=== PATIENT | female | born 1950 | race Caucasian/White ===

== ENCOUNTER → 2016-09-23 | Outpatient (CLI) | payer OTHER | LOC: FIMAGING 10:06 | PROVIDERS: ATTEND Specialist | DX: G56.13 Other lesions of median nerve, bilateral upper limbs (principal); M24.831 Other specific joint derangements of right wrist, not elsewhere classified; M77.8 Other enthesopathies, not elsewhere classified ==

== ENCOUNTER 2016-10-19 12:24 | Inpatient (IN) | payer OTHER ==
--- NOTE | 2016-10-19 12:57 | CPEKG ---
Heart Rate: 77 RR Interval: 779 P-R Interval: 156 QRSD Interval: 86 QT Interval: 380 QTC Interval: 431 P [place]: 53 QRS [place]: -10 T Wave [place]: 46 EKG Severity - ABNORMAL ECG - EKG Impression: SINUS RHYTHM EKG Impression: VENTRICULAR BIGEMINY EKG Impression: BORDERLINE T ABNORMALITIES, ANT-LAT LEADS Electronically Signed By: Kwame Quiroz 19-Oct-2016 13:02:35
[2016-10-19] MEDS ORDERED: NS 1,000 ML IV ONE (13:13)
[2016-10-19] MEDS ORDERED: ASPIRIN 81 MG CHEWABLE TAB PO ONE (13:13)
--- NOTE | 2016-10-19 13:18 | EDPHY ---
H & P Stated Complaint: Midsternal CP "fluttery feel" since yesterday Time Seen by Provider: 10/19/16 13:00 HPI/ROS: CHIEF COMPLAINT: Palpitations HISTORY OF PRESENT ILLNESS: The patient is a 66-year-old obese female with a history of high cholesterol and PVCs who comes to the emergency department complaining of palpitations. She has had PVCs for several years diagnosed by her primary Dr. Ena Johansen. Over last month they become more frequent since she started an exercise program. Over the last week she has began taking the herbal stimulants. Today she has had frequent palpitations and feelings of lightheadedness since she woke up at 6:30 a.m. this morning. No nausea. No diaphoresis. No chest pain or pressure. She does state that she feels that her symptoms improved when she takes a deep breath. It is not painful. Heart rate is around 60. REVIEW OF SYSTEMS: Constitutional: denies: chills, fever, recent illness, recent injury EENTM: denies: blurred vision, double vision, nose congestion Respiratory: denies: cough, shortness of breath Cardiac: See HPI Gastrointestinal/Abdominal: denies: abdominal pain, diarrhea, nausea, vomiting, blood streaked stools Genitourinary: denies: dysuria, frequency, hematuria, pain Musculoskeletal: denies: joint pain, muscle pain Skin: denies: lesions, rash, jaundice, bruising Neurological: denies: headache, numbness, paresthesia, tingling, dizziness, weakness Hematologic/Lymphatic: denies: blood clots, easy bleeding, easy bruising Immunologic/allergic: denies: HIV/AIDS, transplant EXAM: GENERAL: Well-appearing, well-nourished and in no acute distress. HEAD: Atraumatic, normocephalic. EYES: Pupils equal round and reactive to light, extraocular movements intact, sclera anicteric, conjunctiva are normal. ENT: TMs normal, nares patent, oropharynx clear without exudates. Moist mucous membranes. NECK: Normal range of motion, supple without lymphadenopathy or JVD. LUNGS: Breath sounds clear to auscultation bilaterally and equal. No wheezes rales or rhonchi. HEART: Frequent PVCs occasional bigeminy ABDOMEN: Soft, nontender, normoactive bowel sounds. No guarding, no rebound. No masses appreciated. BACK: No CVA tenderness, no spinal tenderness, step-offs or deformities EXTREMITIES: Normal range of motion, no pitting or edema. No clubbing or cyanosis. NEUROLOGICAL: Cranial nerves II through XII grossly intact. Normal speech, normal gait. 5/5 strength, normal movement in all extremities, normal sensation PSYCH: Normal mood, normal affect. SKIN: Warm, dry, normal turgor, no visible rashes or lesions. Source: Patient Exam Limitations: No limitations - Personal History Current Tetanus/Diphtheria Vaccine: Unsure Current Tetanus Diphtheria and Acellular Pertussis (TDAP): Unsure - Medical/Surgical History Hx Asthma: No Hx Chronic Respiratory Disease: No Hx Diabetes: No Hx Cardiac Disease: No Hx Renal Disease: No Hx Cirrhosis: No Hx Alcoholism: No Hx HIV/AIDS: No Hx Splenectomy or Spleen Trauma: No Other PMH: hemorrhoidectomy, lami/discectomy ; appy; foot surg w/pins; 2 knee arthroscopies; high chol; indigestion, reflux, - Family History Significant Family History: No pertinent family hx - Social History Smoking Status: Former smoker Alcohol Use: Sober Drug Use: None Constitutional: Initial Vital Signs Temperature (C) 36.6 C 10/19/16 12:30 Heart Rate 45 L 10/19/16 12:30 Respiratory Rate 16 10/19/16 12:30 Blood Pressure 155/80 H 10/19/16 12:30 O2 Sat (%) 98 10/19/16 12:30 O2 Delivery Mode Nasal Cannula O2 (L/minute) 2 Allergies/Adverse Reactions: No Known Allergies Allergy (Verified 10/19/16 16:54) Home Medications: Medication Instructions Recorded Acetaminophen [Tylenol 325mg (*)] 650 mg PO HS PRN 10/19/16 Herbals/Supplements -Info Only 1 tab PO DAILY 10/19/16 Multivitamins [Multivitamin (*)] 1 tab PO DAILY 10/19/16 Medical Decision Making - Diagnostics EKG Interpretation: An EKG obtained and was read and documented in trace view. Please see trace view for full reading and report. Sinus rhythm, PVCs, no acute ischemia Imaging Results: Imaging Impressions Chest X-Ray 10/19/16 13:13 Impression: No acute pulmonary disease. Chest/Thorax CTA 10/19/16 14:15 Impression: 1. No pulmonary emboli. 2. Pulmonary arterial hypertension. 3. Multiple hepatic cysts. I telephoned results to Dr. Kwame Quiroz at 1509 hours. ED Course/Re-evaluation: The patient has frequent PVCs and occasionally bigeminy. When she has the episodes of bigeminy this is when she becomes symptomatic with palpitations and lightheadedness. Her blood pressure and oxygenation of remained stable. I suspect that this is related to her new exercise regimen it and herbal stimulants. We discussed options. I will obtain cardiac workup and hold off on beta blockers at this time because of her heart rate in the 50s and 60s. I encouraged her to discontinue the herbal stimulants. 2:15 p.m. we discussed the patient's D-dimer. I will obtain a CT angiogram. She became somewhat anxious during this discussion it began having bigeminy. She states that her symptoms of palpitation were exactly reproduced. 3:20 p.m. we discussed the patient's CT report and she is relieved. She continues to have bigeminy off and on. I will give her a trial dose of metoprolol. Her troponin is negative after greater than 8 hours of symptoms which is reassuring. 4:15 p.m. I discussed the case with Dr. Lilly Falcon. The patient has not improved on IV metoprolol. She suggests oral metoprolol and admission for monitoring and echocardiogram in the morning. patient agrees with this plan. 4:20 p.m. I discussed the case with Dr. Angelica Lord who will admit to the medical service on telemetry. Differential Diagnosis: Partial list of the Differential diagnosis considered include but were not limited to; palpitations, acute coronary disease, PE and although unlikely based on the history and physical exam, I also considered , arrhythmia infection , CVA. - Data Points Laboratory Results: Laboratory Results 10/19/16 12:55 10/19/16 12:55 10/19/16 10/19/16 10/19/16 12:55 12:55 12:55 WBC 5.91 10^3/uL 10^3/uL (3.80-9.50) RBC 4.04 10^6/uL L 10^6/uL (4.18-5.33) Hgb 12.5 g/dL L g/dL (12.6-16.3) Hct 37.1 % L % (38.0-47.0) MCV 91.8 fL fL (81.5-99.8) MCH 30.9 pg pg (27.9-34.1) MCHC 33.7 g/dL g/dL (32.4-36.7) RDW 13.2 % % (11.5-15.2) Plt Count 299 10^3/uL 10^3/uL (150-400) MPV 9.2 fL fL (8.7-11.7) Neut % (Auto) 46.7 % % (39.3-74.2) Lymph % (Auto) 41.1 % % (15.0-45.0) Pierce % (Auto) 9.8 % % (4.5-13.0) Eos % (Auto) 1.7 % % (0.6-7.6) Baso % (Auto) 0.5 % % (0.3-1.7) Nucleat RBC Rel Count 0.0 % % (0.0-0.2) Absolute Neuts (auto) 2.76 10^3/uL 10^3/uL (1.70-6.50) Absolute Lymphs (auto) 2.43 10^3/uL 10^3/uL (1.00-3.00) Absolute Monos (auto) 0.58 10^3/uL 10^3/uL (0.30-0.80) Absolute Eos (auto) 0.10 10^3/uL 10^3/uL (0.03-0.40) Absolute Basos (auto) 0.03 10^3/uL 10^3/uL (0.02-0.10) Absolute Nucleated RBC 0.00 10^3/uL 10^3/uL (0-0.01) Immature Gran % 0.2 % % (0.0-1.1) Immature Gran # 0.01 10^3/uL 10^3/uL (0.00-0.10) D-Dimer 1.00 ug/mLFEU H ug/mLFEU (0.00-0.50) Sodium 138 mEq/L mEq/L (134-144) Potassium 4.3 mEq/L mEq/L (3.5-5.2) Chloride 104 mEq/L mEq/L (97-110) Carbon Dioxide 23 mEq/l mEq/l (22-31) Anion Gap 11 mEq/L mEq/L (8-16) BUN 22 mg/dL mg/dL (7-23) Creatinine 0.7 mg/dL mg/dL (0.6-1.0) Estimated GFR > 60 Glucose 87 mg/dL mg/dL (70-100) Calcium 10.3 mg/dL mg/dL (8.5-10.4) Troponin I < 0.012 ng/mL ng/mL (0.000-0.034) Medications Given: Discontinued Medications Aspirin (Aspirin) 324 mg PO EDNOW ONE Stop: 10/19/16 13:14 Last Admin: 10/19/16 13:25 Dose: 324 mg Sodium Chloride (Ns) 1,000 mls @ 0 mls/hr IV EDNOW ONE; Wide Open PRN Reason: Protocol Stop: 10/19/16 13:14 Last Admin: 10/19/16 13:24 Dose: 1,000 mls Metoprolol Tartrate (Lopressor Injection) 5 mg IVP EDNOW ONE Stop: 10/19/16 15:21 Last Admin: 10/19/16 15:37 Dose: 5 mg Metoprolol Tartrate (Lopressor) 25 mg PO EDNOW ONE Stop: 10/19/16 16:12 Last Admin: 10/19/16 16:17 Dose: 25 mg Departure - Departure Disposition: [facility] Inpatient Acute Clinical Impression: Chest pain Qualifiers: Chest pain type: unspecified Qualified Code(s): R07.9 - Chest pain, unspecified Condition: Fair
[2016-10-19 13:20] LABS: % IMMATURE GRANULYOCYTES 0.2 % (0.0-1.1); ABSOLUTE IMMATURE GRANULOCYTES 0.01 10^3/uL (0.00-0.10); ADD DIFF? NO; ADD MORPH? NO; ADD SCAN? NO; ATYPICAL LYMPHOCYTE FLAG 10 (0-99); FRAGMENT RBC FLAG 0 (0-99); HEMATOCRIT 37.1 % (38.0-47.0); HEMOGLOBIN 12.5 g/dL (12.6-16.3); LEFT SHIFT FLG 0 (0-99); LIPEMIA HEMOLYSIS FLAG 80 (0-99); MEAN CELL HEMOGLOBIN 30.9 pg (27.9-34.1); MEAN CELL HEMOGLOBIN CONCENTR. 33.7 g/dL (32.4-36.7); MEAN CELL VOLUME 91.8 fL (81.5-99.8); MEAN PLATELET VOLUME 9.2 fL (8.7-11.7); PLATELET CLUMPS FLAG 20 (0-99); PLATELET COUNT 299 10^3/uL (150-400); RED BLOOD CELL COUNT 4.04 10^6/uL (4.18-5.33); RED CELL DISTRIBUTION WIDTH 13.2 % (11.5-15.2)
[2016-10-19 13:24] LABS: ANION GAP 11 mEq/L (8-16); CALCIUM 10.3 mg/dL (8.5-10.4); CARBON DIOXIDE 23 mEq/l (22-31); CHLORIDE 104 mEq/L (97-110); CREATININE 0.7 mg/dL (0.6-1.0); GLOMERULAR FILTRATION RATE > 60; GLUCOSE 87 mg/dL (70-100); POTASSIUM 4.3 mEq/L (3.5-5.2); SODIUM 138 mEq/L (134-144)
[2016-10-19 13:36] LABS: TROPONIN I < 0.012 ng/mL (0.000-0.034)
[2016-10-19] MEDS ORDERED: IOPAMIDOL (ISOVUE 370) 100 ML BTL IV ONE (14:22)
[2016-10-19] MEDS ORDERED: METOPROLOL TARTRATE 5 MG/5 ML INJ IVP ONE (15:20)
[2016-10-19] MEDS ORDERED: METOPROLOL TARTRATE 25 MG TAB PO ONE (16:11)
[2016-10-19] MEDS ORDERED: ACETAMINOPHEN 325 MG TAB PO PRN (16:56)
[2016-10-19] MEDS ORDERED: ONDANSETRON 4 MG/2 ML VIAL IVP PRN (16:56)
[2016-10-19] MEDS: NS 1,000 ML IV SCH (17:53)
--- NOTE | 2016-10-19 18:11 | GHP ---
[f rep st] HISTORY AND PHYSICAL DATE OF ADMISSION: 10/19/2016 CHIEF COMPLAINT: Palpitations. HISTORY: Mamta is a 66-year-old female, who has a history of intermittent palpitations many years a go, which were diagnosed as symptomatic PVCs. They were previously related to a perimenopausal stat e and had improved, so she did not seek followup. She is now having recurrence of palpitations with increasing frequency over the last month, and today she has had a pretty consistently throughout th e entire day, quite bothersome, and she has never had them to this degree before. She is also feeli ng very lightheaded today, which gets worse when she rises up. She describes these as a flutter in her chest. She has no chest pain or shortness of breath. She recently started a new exercise progr am. She has also been taking an herbal stimulant to help with her energy. She has increased the fr equency of this herbal stimulant over the last week, and has been taking it daily recently. PAST MEDICAL HISTORY: 1. Hyperlipidemia. 2. PVCs. 3. Obstructive sleep apnea on CPAP. PAST SURGICAL HISTORY: Bilateral total knee arthroplasty. Appendectomy, back surgery. MEDICATIONS: Please see computer record for full detailed list. ALLERGIES: No known drug allergies. SOCIAL HISTORY: She quit smoking 6 years ago. Occasional alcohol. She lives with her . REVIEW OF SYSTEMS: Complete review of systems obtained, and is negative regarding constitutional, H EENT, GI, pulmonary, breast, , hematology, skin, muscular, endocrine, psychiatric. There were pos itives and negatives, as in HPI. FAMILY HISTORY: Reviewed, noncontributory to presenting complaint. PHYSICAL EXAMINATION: GENERAL: Well-developed, well-nourished female, in no distress. VITAL SIGNS : Temperature is 36.6, pulse 58, blood pressure 110/60, saturating 99% 2 L. EYES: Normal conjunct ivae, pupils equal, round, react to light. ENT: Normal ears, nose. Hearing intact. Normal teeth. Oropharynx moist. NECK: Trachea midline. No thyromegaly. CHEST: Normal respiratory effort. LANA NGS: Clear to auscultation bilaterally. CARDIOVASCULAR: Regular rhythm. No murmur. No lower extr emity edema. ABDOMEN: Soft, nontender. No hepatosplenomegaly. SKIN: Warm, dry, intact without r thuan. MUSCULOSKELETAL: No cyanosis or clubbing. Strength 5/5, upper and lower extremities. NEURO: Cranial nerves intact, normal sensation to light touch. PSYCH: Alert and oriented x3. Normal af fect. Normal judgment. Normal memory. LABORATORY DATA: White count 5.9, hematocrit 37.1, platelets 299. Sodium 138, potassium 4.3, chlor ariel 104, bicarb 23, BUN 22, creatinine 0.7, glucose 87. Troponins negative. D-dimer is 1.02. IMAGING: EKG viewed by me. My personal interpretation is normal sinus rhythm without ST changes. She has bigeminy. CT scan of the chest is negative for pulmonary embolus and otherwise unremarkable . This case was discussed with Dr. Quiroz, emergency room physician. He spoke with Dr. Lilly Falcon, o n call for Cardiology. She recommends starting a low-dose oral beta francisco, checking an echocardiog caroline, and they will formally consult in the morning. ASSESSMENT/PLAN: 1. Symptomatic premature ventricular contractions, bigeminy. We will check an echocardiogram, and start her on low-dose metoprolol. We will follow serial troponins. We have recommended discontinua tion of her herbal stimulant. Cardiology will see her in the morning. 2. Presyncope. We will check orthostatics. She may be dehydrated. We will hydrate with IV fluids overnight and check a TSH. 3. Hyperlipidemia, not currently on any medical treatment. We will check a lipid panel in the [facility]. 4. Obstructive sleep apnea. Continue CPAP tonight. 5. Code Status is Full. 6. Admission Status: We will admit to observation. Likely to go home tomorrow, if evaluation is o therwise unremarkable. 7. DVT prophylaxis. She is moderate to high risk. We will place her on subcutaneous Lovenox. /[id number]/MODL
[2016-10-20] MEDS: NS 1,000 ML IV SCH (00:36)
[2016-10-20 04:08] LABS: % IMMATURE GRANULYOCYTES 0.2 % (0.0-1.1); ABSOLUTE IMMATURE GRANULOCYTES 0.01 10^3/uL (0.00-0.10); ADD DIFF? NO; ADD MORPH? NO; ADD SCAN? NO; ATYPICAL LYMPHOCYTE FLAG 20 (0-99); FRAGMENT RBC FLAG 0 (0-99); HEMATOCRIT 33.2 % (38.0-47.0); HEMOGLOBIN 10.6 g/dL (12.6-16.3); LEFT SHIFT FLG 0 (0-99); LIPEMIA HEMOLYSIS FLAG 80 (0-99); MEAN CELL HEMOGLOBIN 30.1 pg (27.9-34.1); MEAN CELL HEMOGLOBIN CONCENTR. 31.9 g/dL (32.4-36.7); MEAN CELL VOLUME 94.3 fL (81.5-99.8); MEAN PLATELET VOLUME 9.2 fL (8.7-11.7); PLATELET CLUMPS FLAG 0 (0-99); PLATELET COUNT 224 10^3/uL (150-400); RED BLOOD CELL COUNT 3.52 10^6/uL (4.18-5.33); RED CELL DISTRIBUTION WIDTH 13.4 % (11.5-15.2)
[2016-10-20 04:23] LABS: ANION GAP 9 mEq/L (8-16); CALCIUM 8.6 mg/dL (8.5-10.4); CARBON DIOXIDE 20 mEq/l (22-31); CHLORIDE 108 mEq/L (97-110); CHOLESTEROL 227 mg/dL (140-220); CHOLESTEROL/HDL RATIO 9.46 RATIO (1.00-4.44); CREATININE 0.7 mg/dL (0.6-1.0); GLOMERULAR FILTRATION RATE > 60; GLUCOSE 81 mg/dL (70-100); HIGH DENSITY LIPOPROTEIN 24 mg/dL (40-85); POTASSIUM 4.5 mEq/L (3.5-5.2); SODIUM 137 mEq/L (134-144); TRIGLYCERIDE 263 mg/dL (35-135); VERY LOW DENSITY LIPOPROTEINS 52 mg/dL (8-25)
[2016-10-20 04:24] LABS: LDL/HDL RATIO 6.29 RATIO (1.00-3.22); LOW DENSITY LIPOPROTEIN 151 mg/dL (80-100); MAGNESIUM 2.3 mg/dL (1.6-2.3); NON-HIGH DENSITY LIPOPROTEIN 203 mg/dL (90-129)
--- NOTE | 2016-10-20 05:47 | CPEKG ---
Heart Rate: 49 RR Interval: 1224 P-R Interval: 152 QRSD Interval: 92 QT Interval: 464 QTC Interval: 419 P [place]: 21 QRS [place]: 16 T Wave [place]: 19 EKG Severity - OTHERWISE NORMAL ECG - EKG Impression: SINUS BRADYCARDIA Electronically Signed By: Brandon Leon 20-Oct-2016 07:30:59
[2016-10-20] MEDS ORDERED: METOPROLOL SUCCINATE XR 25 MG TAB PO SCH (09:00)
[2016-10-20] MEDS ORDERED: REGADENOSON 0.4 MG/5 ML SYR IVP ONE (09:35)
--- NOTE | 2016-10-20 10:37 | ECHO ---
[id number] + + [address] : : [place] [address] : : [phone] + Adult Echocardiographic Report + ----+ :Name: KESHIA MELO Date: 10/20/2016 08:00 AM : : Hospital Admission Number: [id number] Location: 207: :: 1950 Gender: Female Height: 63 in : :Age: 66 yrs Race: WH Weight: 165 lb : :Reason For Study: Symptomatic PVC : : BSA: 1.8 meters2 : :History: No previous : + ----+ MMode/2D Measurements \T\ Calculations IVSd: 1.1 cm LVIDd: 4.8 cm FS: 38.8 % LVOT diam: 1.9 cm LVPWd: 0.93 cm LVIDs: 3.0 cm EDV(Teich): LVOT area: 110.1 ml 2.8 cm2 ESV(Teich): 34.1 ml EF(Teich): 69.0 % LVLd ap4: 6.3 cm SV(MOD-sp4): EDV(MOD-sp4): 35.0 ml 51.0 ml LVLs ap4: 4.9 cm ESV(MOD-sp4): 16.0 ml EF(MOD-sp4): 68.6 % Normal Measurement Values: + + :LVIDd (3.5-5.7cm) IVSd (0.6-1.1cm) LVPWd (0.6-1.1cm) Aortic Root (2.0-3.7cm)Left Atrium (1.5-4.0cm): :LV Vol(d) (76-115ml) LV Vol(s) (29-48ml) Ejec Fraction (50-65%)PV Luis F (0.6- 1.2m/s) TV Luis F (0.4-1.0m/s) : :MV E Luis F (0.8-1.0m/s)MV A Luis F (0.3-1.0m/s)LVOT Luis F (0.7-1.2m/s) Asc Ao Luis F ( 0.9-1.8m/s) : + + Doppler Measurements \T\ Calculations MV E max luis f: Ao mean P.1 mmHg LV V1 max: SV(LVOT): 73.1 cm/sec Ao V2 mean: 112.0 cm/sec 80.3 ml MV A max luis f: 96.7 cm/sec LV V1 max P.7 cm/sec Ao V2 VTI: 35.4 cm 5.0 mmHg MV E/A: 1.1 JASON(I,D): 2.3 cm2 LV V1 mean PG: MV dec time: 0.16 sec 2.7 mmHg LV V1 mean: 75.8 cm/sec LV V1 VTI: 29.1 cm PA V2 max: PI end-d luis f: RAP systole: 75.6 cm/sec 59.9 cm/sec 10.0 mmHg PA max P.3 mmHg Left Ventricle The left ventricle is normal in size and function. There is normal left ventricular wall thickness. Ejection Fraction = 68%. No regional wall motion abnormalities noted. Right Ventricle The right ventricle is borderline dilated. The right ventricular systolic function is normal. Atria The left atrial size is normal. Right atrial size is normal. The interatrial septum is intact with no evidence for an atrial septal defect. Mitral Valve The mitral valve is normal in structure and function. There is mild mitral annular calcification. There is no mitral valve stenosis. There is no mitral regurgitation noted. Tricuspid Valve The tricuspid valve is normal in structure and function. There is no tricuspid stenosis. No tricuspid regurgitation. Right ventricular systolic pressure is normal. Aortic Valve The aortic valve is normal in structure and function. There is no aortic stenosis. Trace to mild aortic regurgitation. Pulmonic Valve The pulmonic valve is not well visualized. trace to mild pulmonic valvular regurgitation. Great Vessels The aortic root is normal size. Pericardium/Pleural There is a fat pad seen. trivial pericardial effusion. Conclusion A complete two-dimensional transthoracic echocardiogram was performed (2D, M-mode, Doppler and color flow Doppler). The study was technically difficult. The left ventricle is normal in size and function. Ejection Fraction = 68%. Normal wall motion Borderline RV dilation with normal RV systolic function There is mild mitral annular calcification. Right ventricular systolic pressure is normal. The aortic valve is normal in structure and function. Trace to mild aortic regurgitation. trace to mild pulmonic valvular regurgitation. trivial pericardial effusion. No prior echo Final Reading Physician: Dr Lilly Falcon electronically signed on 10/20/2016 10:36 AM Ordering Physician: Angelica Lord Performed By: Lyndsay Hirsch
[2016-10-20] MEDS: METOPROLOL TARTRATE 25 MG TAB PO SCH ×2 (11:57→20:12)
[2016-10-20] MEDS: ENOXAPARIN 40 MG/0.4 ML SYR SC SCH (11:57)
--- NOTE | 2016-10-20 12:08 | GCON ---
[f rep st] CONSULTATION CARDIOLOGY CONSULTATION INDICATION FOR CARDIOLOGY CONSULTATION: Premature ventricular contractions, lightheadedness. HISTORY OF PRESENT ILLNESS: The patient is a 66-year-old female with reported history of premature ventricular contractions, obstructive sleep apnea, and hyperlipidemia. Patient reporting she had been in her usual state of health until yesterday morning, waking up with a fluttering sensation in her chest, which was associated with lightheadedness, she did feel that symptoms did mildly improve when taking a deep breath, she had had similar symptoms in the past, 10 years, but nothing as severe as this one. She felt that potentially this might have been due to low blood sugar, ate breakfast, and felt that the symptoms did not improve, and came to the emergency department for further evaluation. Upon arrival, she did undergo electrocardiogram, which showed sinus rhythm, with no acute ST or T-wave abnormalities, occasional premature ventricular contraction was noted. It was noted that her initial troponin was negative. Her D-dimer was 1.0. When this was being discussed with her, the potential causes of this, she became very anxious, and was noted to go in sinus rhythm with bigeminal premature ventricular contractions, causing more lightheadedness. CTA of the chest was done, showing no pulmonary embolism, she was given a dose of IV metoprolol with mild improvement in premature ventricular contractions, and started on metoprolol tartrate. She has been admitted to PCU for overnight observation, she has had repeated troponin levels that have all been negative, she reports no chest pressure or pain, or shortness of breath throughout her episodes. She has been noted to be mildly bradycardic with the starting of metoprolol tartrate, and mildly hypotensive with systolics in the 90s. She does report some lightheadedness this morning with positional changes. The patient does admit that she has had a history of PVCs in the past, first diagnosed around year 1999, she does report that she was told not to worry about the symptoms. She did report around 2013, 2014, that she started going through menopause, and due to this was starting to have more frequent palpitations, she did notify her PCP, and had a 30-day monitor done, which she was told that she had a significant amount of premature ventricular contractions and had recommended further cardiology workup, but at that time, her symptoms did subside, and she never followed through. The patient reports over the last 2 weeks, she has been exercising, she has recently started a new diet supplement, which she thinks potentially might have 1 or 2 agents that may be stimulants. Again, she has reported no chest pain or pressure, denies of any shortness of breath, orthopnea, PND, edema, near-syncope , or syncopal events. Denies of any symptoms suggestive of TIA or CVA. She reports no recent history of fevers, chills, or night sweats. She denies of any bleeding issues. She does report that she has had a past history where she has been told that she has mild anemia, but does not know if she has had any significant workup. She has cardiac risk factors that include age, previous smoker, hyperlipidemia, and family history of coronary artery disease, but reporting a maternal grandmother who had a heart attack in her 80s. PAST MEDICAL HISTORY: Include hyperlipidemia, premature ventricular contractions, obstructive sleep apnea, which she is currently on CPAP, and mild anemia. PAST SURGICAL HISTORY: Includes bilateral total knees, most recently, left knee done in February 2016, appendectomy, and back surgery. FAMILY HISTORY: Patient reports maternal grandmother having a myocardial infarction in her 80s, she thinks her paternal grandmother also had heart disease, but is uncertain of the age. Denies of any family history of sudden cardiac . 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 She has 1 adult child, who has no significant medical history. She has previous tobacco abuse, which she has quit, greater than 5 years ago. She reports occasional alcohol use, reporting less than 1 drink a week. She does drink occasional caffeine, in which she reports having 10 ounces of decaffeinated coffee on a daily basis. Denies any illicit drug use. ALLERGIES: Patient has no known drug allergies. HOME MEDICATIONS: Include multivitamin 1 tablet p.o. daily, herbs and supplements daily, Tylenol 650 mg p.o. h.s. as needed. REVIEW OF SYSTEMS: A 10-point review of systems was done on this patient, all negative except as mentioned above. PHYSICAL EXAMINATION: GENERAL APPEARANCE: Medium built, moderately obese, female. She is alert and oriented to person, place, time, and situation. Appears to be under no acute distress at this time. VITAL SIGNS: Current vital signs are blood pressure of 89/54, heart rate is 54, sinus bradycardia on the monitor, occasional premature ventricular contraction noted. Respirations 15, saturating 92% on room air. Temperature 36.9 degrees Celsius. HEENT: Head is normocephalic. Lips and tongue are pink and moist with no signs of cyanosis. Conjunctivae pink. NECK: Trachea is midline, +2 carotid pulses bilateral. No auscultated bruits, no jugular vein distention. RESPIRATORY: Lungs clear to auscultation, no rhonchi, rales or wheezes. No accessory muscle use, no intercostal muscle retraction noted. CARDIAC: Regular rate, regular rhythm, S1, S2, no S3, S4, gallops, rubs or murmurs noted. ABDOMEN: Soft, nontender, bowel sounds x4 quadrants, no organomegaly, no palpable masses. SKIN: [place], warm, dry, no cyanosis, no clubbing, no peripheral edema. VASCULAR: +2 carotids bilateral, +2 radials bilateral, +2 posterior tibial and dorsal pedal pulses bilateral. LABORATORY STUDIES: Laboratory studies drawn on admission showed WBC of 5.91, hemoglobin of 12.5, hematocrit of 37.1, platelet count of 299. Also noted on admission to have a D-dimer of 1.00. This morning's laboratory work shows WBC of 5.15, hemoglobin of 10.6, hematocrit of 33.2, platelet count of 224. Sodium 137, potassium 4.5, chloride 108, CO2 , BUN 21, creatinine 0.7, glucose 81, calcium 8.6, phosphorus 4.8, magnesium 2.3. The patient has been noted to have 3 troponin levels drawn since her hospital admission, have been all less than 0.012. Triglycerides this morning were 263, total cholesterol 227 , LDL 151, HDL 24, TSH 1.490. STUDIES: This morning's electrocardiogram shows sinus bradycardia, normal axis , no significant ST or T-wave abnormalities suggesting ischemia. Chest x-ray done on admission showing no acute cardiopulmonary process. CTA of the chest done on admission showing no pulmonary embolism, questionable pulmonary artery hypertension, multiple hepatic cysts. Preliminary echocardiogram done this morning showing normal LV systolic function, with no wall motion abnormalities, normal ejection fraction, no significant valvular heart disease. ASSESSMENT AND PLAN: 1. Frequent premature ventricular contractions: Patient noted to have premature ventricular contractions this morning, did get anxious in the emergency department and felt fluttering sensation again, which did correlate with sinus rhythm with bigeminal premature ventricular contractions. Has noted some lightheadedness with this. Echocardiogram has showed no significant structural heart disease, laboratory studies have showed normal electrolyte and renal functions, negative troponins x3. Patient reports no chest pressure or pain. Mild improvement with initial dose of metoprolol IV in the emergency department, and repeated metoprolol tartrate last evening, but unfortunately has had bradycardia and lower blood pressure. At this time, I do think it would be valuable with her premature ventricular contractions and multiple cardiac risk factors, for her to be further evaluated for cardiac ischemia as another possible cause, due to patient having beta francisco tonight, she would be unable to run on treadmill to get sufficient heart rate, I have recommended that she MPI study, which we will do this morning. As for lower blood pressure and heart rate with the starting of metoprolol tartrate, I have decreased the dose to 12.5 mg p.o. b.i.d., and we will continue to monitor her on continuous EKG, again she reporting mild improvement with beta-francisco of palpitations. Also noted that her TSH was within normal limits. The patient did report that she has recently started an herbal supplement for help with weight loss, does think that this potentially may have stimulants in it, potentially this may be her cause, I recommend that she discontinue using this medication. 2. Lightheadedness, the patient was noted to be lightheaded with initial palpitations. Orthostatics vital signs were done during initial admission, showing no significant drop in blood pressure from supine to standing. Potentially, the lightheadedness due to premature ventricular contractions, now associated with bradycardia, and starting metoprolol, decrease dosage as above, she has been given IV fluids throughout the evening. 3. Hyperlipidemia: Patient noted to have significant hyperlipidemia, she does report that she uses Co-Q10 and red yeast rice at home, we have discussed potentially statin therapy, which she does not want to take any other medications at this time. She has been encouraged a healthy diet, routine exercise, weight loss. 4. Obstructive sleep apnea, patient is using CPAP. 5. Anemia: Patient report history of mild anemia for several years, but uncertain if every worked up. H and H on admission 12.5 and 37.1, to day after being hydrated all night 10.6 and 33.2. Drop probably dilutional. No sign of active bleeding, Hemoccult stool X3. Thank you for this consultation. Further recommendations will come post stress testing. /[id number]/MODL MTDD
--- NOTE | 2016-10-20 12:58 | CPR ---
[f rep st] NONINVASIVE CARDIAC PROCEDURE REPORT PROCEDURE: Lexiscan myocardial perfusion imaging study. 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 PRE: After obtaining informed consent and ensuring patient's n.p.o. status for caffeine greater osmany n 12 hours, patient was placed on electrocardiogram. Initial EKG shows sinus bradycardia and occasi onal premature ventricular contraction; no significant ST or T-wave abnormalities suggesting ischemi a. Patient denies any chest pain/pressure, or symptoms suggesting ischemia. Initial blood pressure 120/63 saturation 93%. INJECTION: Patient was given Lexiscan slow IV push followed by nuclear isotope. Within 1 minute of injection, patient reported feeling significant flushing sensation, blood pressure elevated to 154/ 63, heart rate up to 90 beats per minute. No significant EKG changes, no significant arrhythmias. After 5 minutes and patient being given a caffeinated beverage, patient reports all symptoms of flus yomi dissipated. Her vital signs remained stable, heart rate decreased back to 69 beats per minute, blood pressure at 132/65, and saturation 95%. Denying any chest pain or symptoms suggesting ischem ia. IMPRESSION: A 66-year-old female, admitted for frequent premature ventricular contractions with occ asional palpitation and multiple cardiac risk factors. She is being evaluated for possible cardiac ischemia. Did report mild flushing with injection of Lexiscan, which dissipated within 5 minutes wi th caffeine. Vital signs remained stable. She will be taken down to Nuclear Medicine to get post-m yocardial perfusion imaging done. /[id number]/MODL
--- NOTE | 2016-10-20 13:20 | HOSPPROG ---
Hospitalist Progress Note Assessment/Plan: #Symptomatic PVCs: TTE WNL. Nuc stress abnormal, resting images tomorrow. Reduced BB dose with bradycardia overnight. May have been exacerbated by herbal stimulant. Advised caution taking supplements not FDA-regulated #Lightheadedness: negative orthostatics. TTE WNL #HLD: did not tolerate statin in past. Red rice yeast, omega 3 #Normocytic anemia: mild drop overnight. No active bleeding. FU PCP for outpatient scope #Diet: cardiac #DVT ppx: lovenox #Disp: warrants inpt admission with concern for ischemia requiring telemetry and further cardiac imaging. Subjective: no palps, chest pain, or SOB Objective: Vital Signs Temp Pulse Resp BP Pulse Ox 37.1 C 57 L 17 128/72 H 92 10/20/16 11:52 10/20/16 11:52 10/20/16 11:52 10/20/16 11:57 10/20/16 11:52 Laboratory Results 10/20/16 03:28 10/20/16 03:28 10/19/16 10/20/16 10/21/16 05:59 05:59 05:59 Intake Total 2650 Balance 2650 - Physical Exam Constitutional: no apparent distress Eyes: PERRL Ears, Nose, Mouth, Throat: moist mucous membranes Cardiovascular: regular rate and rhythym, no murmur, rub, or gallop, No edema Respiratory: no respiratory distress, no rales or rhonchi Gastrointestinal: normoactive bowel sounds Genitourinary: no bladder fullness Skin: warm Musculoskeletal: full muscle strength Neurologic: AAOx3, CN II-XII Intact Psychiatric: interacting appropriately ICD10 Worksheet Patient Problems: Problems Problem Status Onset Chest pain Acute OA (osteoarthritis) of knee Acute
[2016-10-21 04:31] LABS: HEMATOCRIT 31.4 % (38.0-47.0); HEMOGLOBIN 10.4 g/dL (12.6-16.3); MEAN CELL HEMOGLOBIN CONCENTR. 33.1 g/dL (32.4-36.7); MEAN CELL VOLUME 93.7 fL (81.5-99.8); RED BLOOD CELL COUNT 3.35 10^6/uL (4.18-5.33); RED CELL DISTRIBUTION WIDTH 13.2 % (11.5-15.2)
[2016-10-21] MEDS ORDERED: ATORVASTATIN CALCIUM 40 MG TAB PO SCH (11:45)
[2016-10-21] MEDS: METOPROLOL TARTRATE 25 MG TAB PO SCH (11:50)
[2016-10-21] MEDS: ENOXAPARIN 40 MG/0.4 ML SYR SC SCH (11:50)
[2016-10-21 12:05] VITALS: BP 145/73; PULSE 66; RESP 19; TEMP 98.1; O2SAT 92
--- NOTE | 2016-10-21 12:10 | HOSPPROG ---
Hospitalist Progress Note Assessment/Plan: #Symptomatic PVCs: TTE WNL. Awaiting resting test stress results. Cont BB. May have been exacerbated by herbal stimulant. Advised caution taking supplements not FDA-regulated #Lightheadedness: negative orthostatics. TTE WNL #HLD: did not tolerate statin in past. Red rice yeast, omega 3 #Normocytic anemia: mild drop overnight. No active bleeding. FU PCP for outpatient scope #Diet: cardiac #DVT ppx: lovenox #Disp: DC home today if normal stress Subjective: no palps or chest pain today Objective: Vital Signs Temp Pulse Resp BP Pulse Ox 36.7 C 66 19 145/73 H 92 10/21/16 12:00 10/21/16 12:00 10/21/16 12:00 10/21/16 12:00 10/21/16 12:00 Laboratory Results 10/21/16 03:53 10/20/16 10/21/16 10/22/16 05:59 05:59 05:59 Intake Total 1130 Balance 1130 - Physical Exam Constitutional: no apparent distress Eyes: PERRL Ears, Nose, Mouth, Throat: moist mucous membranes, hearing normal Cardiovascular: regular rate and rhythym, no murmur, rub, or gallop, No edema Respiratory: no respiratory distress, no rales or rhonchi Gastrointestinal: normoactive bowel sounds, soft, non-tender abdomen Genitourinary: no bladder fullness Skin: warm Musculoskeletal: full muscle strength Neurologic: AAOx3, CN II-XII Intact Psychiatric: interacting appropriately ICD10 Worksheet Patient Problems: Problems Problem Status Onset Chest pain Acute OA (osteoarthritis) of knee Acute
--- NOTE | 2016-10-21 12:54 | PDCARPN ---
Cardiology Progress Note Assessment/Plan: Assessment/plan: 66-year-old female with history of dyslipidemia previously intolerant of atorvastatin, coronary artery calcifications seen incidentally on chest CT, and sleep apnea on CPAP. She was admitted on October 19 with symptomatic PVCs. Echocardiogram is normal. EKG is nonischemic. Serial troponins are negative. Lexiscan myocardial perfusion imaging shows no definite ischemia or infarct. Ejection fraction normal. 1. PVCs: The symptoms improved with low-dose beta-francisco. Would continue this. Nuclear stress test shows a very small lateral defect on stress images at the base, however I think this is more likely shifting breast attenuation artifact and not true ischemia. She does have minimal scattered plaque in her coronary tree seen incidentally on chest CT. 2. Coronary artery calcifications: On myocardial perfusion imaging, unlikely to be flow limiting. I recommended low-dose aspirin 3 times a week as well as Crestor 2.5 mg 3 times a week to reduce cardiovascular risk. She understands and will consider this. 3. Dyslipidemia: Her LDL cholesterol is 151. She previously had hand pain associated with atorvastatin. She has been inconsistent with the use of red yeast rice. The rationale behind statin therapy to reduce cardiovascular risk was discussed with her and her . She would be willing to consider Crestor 2.5 mg 3 times per week with increasing doses as tolerated. 4. Hypertension: She does not carry this diagnosis but has been mildly hypertensive here. Continue beta-blockers. She may need an additional agent as an outpatient. 5. Sleep apnea: Continue CPAP. The patient appears stable for discharge from a cardiovascular standpoint. She should follow at [facility] with either myself or [place] NP. Discussed with Dr. Yang. 10/21/16 12:51 Subjective: Mamta has no chest pain. Her palpitations have improved since starting low- dose metoprolol. She denies shortness of breath. Reviewed/Discussed With: family, hospitalist (Dr. Yang ) Objective: Vital Signs (8 Hrs) Temp Pulse Resp BP Pulse Ox 10/21/16 12:00 36.7 C 66 19 145/73 H 92 10/21/16 07:24 36.8 C 47 L 17 137/70 H 95 Intake/Output (24 Hrs) 10/20/16 10/21/16 10/22/16 05:59 05:59 05:59 Intake Total 1130 Balance 1130 Intake: Oral (ml) 1120 IV Intake (ml) 10 Other: Number of Voids Toilet 2 Nuclear stress. JVP less than 10. Regular rate and rhythm without murmur or gallop. Carotids are equal and 2+ breath every Lungs clear auscultation bilaterally bruits rhonchi or rales Extremities are warm well perfused without cyanosis clubbing or edema Result Diagrams: 10/21/16 03:53 10/20/16 03:28 Telemetry: Sinus rhythm with rare PVCs ICD10 Worksheet Patient Problems: Problems Problem Status Onset OA (osteoarthritis) of knee Acute Chest pain Acute
--- NOTE | 2016-10-21 13:22 | GDS ---
[f rep st] DISCHARGE SUMMARY DISCHARGE DIAGNOSES: 1. Premature ventricular contractions. 2. Coronary artery calcifications. 3. Hyperlipidemia. 4. Hypertension. 5. Sleep apnea. HISTORY OF PRESENT ILLNESS: Patient is a 66-year-old female, history of hyperlipidemia, hypertensio n, presenting with intermittent palpitations. These began many years ago, was diagnosed as symptoma tic PVCs. This was related to perimenopausal state and improved, thus she did not seek follow up. She has had recurrence of these palpitations with frequency over the last month, and day of admissio n, had them consistently throughout the day. She was feeling very lightheaded, especially with standing. She s ays there was a flutter in her chest. She has increased the frequency of an herbalist stimulant ove r the past week. HOSPITAL COURSE BY PROBLEM: 1. Symptomatic PVCs: Suspect secondary to herbal supplement. She had echocardiogram that was nega tive. Her nuclear stress test did not demonstrate acute ischemia or infarct. She will be medically treated with low-dose beta-francisco. She had hand cramping with statin in the past, but is willing to try a low-dose Crestor 3 times a week. She has been using red rice yeast as an outpatient. She is also willing to take a low-dose aspirin 3 days a week. She will follow up with Dr. Falcon in [address] [place] [address]. 2. Hyperlipidemia: Again we will trial low-dose statin 3 times a week. 3. Normocytic anemia: H and H stable, no active bleeding. 4. Coronary artery calcifications: Myocardial profusion imaging, there was some noted. She will b e treated medically with low-dose aspirin and Crestor 3 times a week. 5. Hypertension: She has been mildly hypertensive throughout this stay. She will be started on be ta francisco. She will follow up with Cardiology and they can add additional antihypertensive if candace anted. 6. Sleep apnea: Continue CPAP. DISPOSITION: Patient is stable for discharge home. NEW MEDICATIONS: Metoprolol 12.5 mg, Crestor 2.5 mg Saturday, Saturday, Saturday. Aspirin 81 mg , Saturday, Saturday. FOLLOW UP: Dr. Falcon in 2 weeks. /[id number]/MODL
== END 2016-10-21 14:54 | disposition home or self-care (01) | DRG 310 ==
LOC: F2W 17:15 → OBSVTOIN 10-20 14:49
PROVIDERS: ADMIT Internal Medicine; ATTEND Internal Medicine
DX: I49.3 Ventricular premature depolarization (principal); E78.5 Hyperlipidemia, unspecified; I10 Essential (primary) hypertension; I25.10 Atherosclerotic heart disease of native coronary artery without angina pectoris; G47.33 Obstructive sleep apnea (adult) (pediatric); T50.905A Adverse effect of unspecified drugs, medicaments and biological substances, initial encounter; D64.9 Anemia, unspecified; Z87.891 Personal history of nicotine dependence; Z96.653 Presence of artificial knee joint, bilateral
CPT/HCPCS: 96374; A9500; G0378; J1650; J2405; J2785; Q9967

== ENCOUNTER → 2017-02-13 | Outpatient (CLI) | payer OTHER | LOC: BHFA 10:00 | PROVIDERS: ATTEND Internal Medicine Cardiovascular Disease | DX: I49.3 Ventricular premature depolarization (principal) ==

== ENCOUNTER 2018-05-06 06:08 | Day surgery (SDC) | payer OTHER | END 2018-05-06 11:00 | disposition home or self-care (01) | LOC: FSGY 06:08 ==